=== PATIENT | male | born 1955 | race Caucasian/White ===

== ENCOUNTER → 2016-09-14 | Outpatient (CLI) | payer OTHER ==
--- NOTE | 2016-09-14 14:17 | DX ---
PA and Lateral Chest Clinical Indications: Shortness of breath and flulike symptoms in a 61-year-old male; no prior studi es are available for comparison. Findings: There is opacity at the left lung base posteriorly consistent with pneumonia. There is mild hyperexpansion seen with flattening of the hemidiaphragms noted. The heart size and pulmonary vascul arity are normal. Pleural surfaces and bony thorax are negative for acute abnormality. Impression: Left lower lobe pneumonia may be superimposed upon underlying COPD. A preliminary report was called to the patient's healthcare provider.
== END ==
LOC: CIMAGING 12:15
PROVIDERS: ATTEND Family Medicine
DX: J18.1 Lobar pneumonia, unspecified organism (principal)
CPT/HCPCS: 71020-PO